=== PATIENT | female | born 1975 ===

== ENCOUNTER → 2021-08-03 01:38 | Outpatient (CLI) | payer OTHER, SELFPAY ==
--- NOTE | 2021-08-03 03:00 | ETT_ITS ---
APPROVED REPORT Exam: Exercise Treadmill Patient Location: Out-Patient Room/Bed: Stress Nurse: Gayatri Arroyo RN Ordering Provider:WOODY LIZAMA, Contact Number: [phone] BMI: 25.10 Baseline Rhythm: Sinus Rhythm Comment: baseline ST depressions in inferior leads Indications: DISABILITY DETERMINATION, HEART ATTACK, BREATHING PROBLEMS, MEMORY PROBLEMS, WEAKNESS, B ACK PAIN, DIABETES Medical History Medical History: CABG X 3, HTN, HLD, COPD, DM Type 1, Former smoker. Cardiac Medications: Metoprolol succinate, Atorvastatin, Amlodipine, Allergies: Tramadol, Proventil, Naproxen, Aspirin Cardiac Risk Factors: FHX of CAD, HTN, Hyperlipidemia, DM type I, , COPD, CVD, Smoking (former) Previous Cardiac Procedures: CABG x 3 (02/2020) Pretest Chest Pain Characteristics: No chest pain Exercise History: Sedentary Physical Disabilities: Legs, Back Lung Sounds: Clear to auscultation Heart Sounds: Regular Stress Test Details Test: Exercise stress testing was performed using a Tutu protocol. Rest Stress HR Resting HR Supine: 94 bpm Max Heart Rate (APMHR): 173 bpm Resting HR Standin bpm Target HR (85% APMHR): 147 bpm Max HR Achieved: 138 bpm % of APMHR: 79 Recovery HR: 99 bpm HR response to stress: Accelerated HR response to stress Comment: Metoprolol succinate not held, taken last this AM. BP Resting BP Supine: 158/98 mmHg Resting BP Standin/98 mmHg Max BP: 182/100 mmHg Recovery BP: 168/96 mmHg BP response to stress: Normal blood pressure response to stress. Comment: Hypertensive at baseline. ECG Resting ECG: Sinus Rhythm/Sinus Tachycardia Ectopy: none Comment: baseline ST depressions in inferior leads Stress ECG: Sinus Tachycardia ST Change: No significant ST segment changes noted Arrhythmia: None Recovery ECG: Sinus Tachycardia Recovery ST Change: No significant ST segment changes noted Recovery Arrhythmia: None Clinical Reason for Termination: Dyspnea, Unsafe gait Stress Symptoms: Leg Fatigue, Dyspnea Exercise duration: 01 min07 sec Highest Stage Reached: Stage 1: 1.7 mph at 10% grade. Exercise capacity: 4.64 METs Nolen Treadmill Score: 1.0 Rate Pressure Product: [id number] Stress ECG Conclusion 1. Resting electrocardiogram showed nondiagnostic ST-T abnormalities 2. Patient exercised on the Tutu protocol for 1 minute and 7 seconds, stopping due to leg fatigue an d shortness of breath. Poor exercise tolerance 3. Resting hypertension. Normal heart rate and blood pressure response to exercise. Peak heart rate achieved was 79% of predicted for age 4. The electrocardiographic portion of the test was nondiagnostic for ischemia due to inadequate hear t rate 5. There were no significant dysrhythmias Nolen Treadmill Score is 1.0 which is Moderate risk. Stress Test Summary STAGE Time (mins) Speed (mph) Grade (%) HR BP SYMPTOMS METS Supine 94 158/98 Standing 102 156/98 1 3 1.7 10 125 182/100 4.6 2 6 2.5 12 102 180/98 7 3 9 3.4 14 99 168/96 10.2
== END ==
PROVIDERS: Visit Provider Pediatrics Pediatric Rheumatology
DX: I25.2 Old myocardial infarction (principal); R06.89 Other abnormalities of breathing; R53.1 Weakness; M54.50 Low back pain, unspecified; Z02.71 Encounter for disability determination
CPT/HCPCS: 93017